=== PATIENT | female | born 1960 | race Hispanic/Latino ===

== ENCOUNTER → 2017-11-07 | Outpatient (CLI) | payer OTHER | LOC: MAMMO 11:55 | PROVIDERS: ATTEND Internal Medicine | DX: Z12.31 Encounter for screening mammogram for malignant neoplasm of breast (principal) | CPT/HCPCS: 77067 ==

== ENCOUNTER → 2018-02-21 | Outpatient (CLI) | payer OTHER ==
--- NOTE | 2018-02-21 11:48 | Diagnostic Imaging Report ---
PROCEDURE:L-SPINE COMPLETE COMPARISON:None. 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 The vertebral bodies are well-aligned without evidence of spondylolisthesis. No lucency noted through the pars interarticularis on oblique views. There are no fractures, lytic or blastic lesions. Mild disc space narrowing at L5-S1. Mild facet arthrosis from L4-S1. Mild degenerative changes of the sacroiliac joints. CONCLUSION: Mild degenerative changes of the lower lumbar spine. Dictated by: Yohan Gale M.D. on 02/21/2018 at 11:51 Electronically approved by: Yohan Gale M.D. on 02/21/2018 at 11:51
--- NOTE | 2018-02-21 11:59 | Diagnostic Imaging Report ---
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 FINDINGS: Lumbarization of S1. Mild disc space narrowing at L5-S1. Mild degenerative changes at the L4-L5 and L5-S1 facets and sacroiliac joints. No fractures or dislocations. Phleboliths project over the pelvis. Soft tissues are unremarkable. CONCLUSION: Mild degenerative changes of the lower lumbar spine and SI joints. Lumbarization of S1. Dictated by: Yohan Gale M.D. on 02/21/2018 at 12:02 Electronically approved by: Yohan Gale M.D. on 02/21/2018 at 12:02
== END ==
LOC: RAD 10:26
PROVIDERS: ATTEND Internal Medicine
DX: M47.817 Spondylosis without myelopathy or radiculopathy, lumbosacral region (principal)
CPT/HCPCS: 72110; 72220

== ENCOUNTER → 2019-02-05 | Outpatient (CLI) | payer OTHER | LOC: MAMMO 11:39 | PROVIDERS: ATTEND Internal Medicine | DX: Z12.31 Encounter for screening mammogram for malignant neoplasm of breast (principal) | CPT/HCPCS: 77067 ==

== ENCOUNTER → 2020-02-05 | Outpatient (CLI) | payer OTHER ==
--- NOTE | 2020-02-05 12:14 | Diagnostic Imaging Report ---
EXAMINATION: SP LUMBAR, COMPLETE MIN 4VW, SACRUM X-RAY INDICATION: Lumbar spondylosis COMPARISON: None FINDINGS: There is lumbarization of S1. No acute fracture. Vertebral body heights are preserved. Grade 1 retrolisthesis at L2-3. Oblique images demonstrate no spondylolysis. Mild multilevel degenerative changes with small osteophyte formation and mild facet arthropathy. Phleboliths in the pelvis. IMPRESSION: No acute osseous injury. Grade 1 retrolisthesis at L2-3. Mild multilevel degenerative changes. Signed by: Galindo Man MD on 02/05/2020 12:10 PM
== END ==
LOC: RAD 10:57
PROVIDERS: ATTEND Internal Medicine
DX: Z12.31 Encounter for screening mammogram for malignant neoplasm of breast (principal); M47.816 Spondylosis without myelopathy or radiculopathy, lumbar region
CPT/HCPCS: 72110; 72220; 77067

== ENCOUNTER → 2025-04-18 | Outpatient (REF) | payer MEDICARE | LOC: MAMMO 08:12 | PROVIDERS: ATTEND Internal Medicine | DX: Z12.31 Encounter for screening mammogram for malignant neoplasm of breast (principal) | CPT/HCPCS: 77067 ==